=== PATIENT | female | born 1980 | race Caucasian/White ===

== ENCOUNTER 2016-10-28 18:47 | Emergency (ER) | payer OTHER ==
[2016-10-28 19:34] VITALS: BP 120/86
[2016-10-28] MEDS ORDERED: HYDROmorphone 1 MG/ML Syringe IM ONE (19:42)
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
--- NOTE | 2016-10-29 09:13 | CR ---
Hand 2V Lt FINDINGS: There is normal alignment. There are no fractures or posttraumatic findings. There are no significant degenerative changes. The soft tissues are unremarkable. There is no radiopaque foreign body. IMPRESSION: Negative exam.
== END 2016-10-28 20:50 | disposition home or self-care (01) ==
LOC: JP.ED 18:47
DX: S61.412A Laceration without foreign body of left hand, initial encounter (principal); I10 Essential (primary) hypertension; Z88.0 Allergy status to penicillin; F32.9 Major depressive disorder, single episode, unspecified; E03.9 Hypothyroidism, unspecified; F17.210 Nicotine dependence, cigarettes, uncomplicated; Z85.850 Personal history of malignant neoplasm of thyroid; Z98.51 Tubal ligation status; Z90.710 Acquired absence of both cervix and uterus; Z98.890 Other specified postprocedural states; Z79.899 Other long term (current) drug therapy; W26.0XXA Contact with knife, initial encounter
CPT/HCPCS: 73120; 96372; 99284; J1170